=== PATIENT | female | born 1975 | race Caucasian/White ===

== ENCOUNTER 2016-03-15 10:19 | Emergency (ER) | payer OTHER ==
--- NOTE | 2016-03-15 11:42 | ED ---
General Adult HPI - General Chief complaint: Back Pain/Injury Stated complaint: back pain Time Seen by Provider: 03/15/16 11:25 Source: patient, RN notes reviewed Mode of arrival: ambulatory Limitations: no limitations - History of Present Illness Initial comments: Patient is a 40-year-old female who presents emergency room today with a chief complaint of a acute exacerbation chronic low back pain. Does admit to pain on the left side of the back is worse with certain movements. Denies any bowel or bladder incontinence or retention. Denies any saddle anesthesia. Denies any lumbar radiculopathy. Patient denies any recent fever, chills, shortness of breath, chest pain, abdominal pain, nausea or vomiting, numbness or tingling, dysuria or hematuria, constipation or diarrhea, headaches or visual changes, or any other complaints. - Related Data Home Medications Medication Instructions Recorded Confirmed Levothyroxine Sodium [Synthroid] 100 mcg PO DAILY 01/08/16 03/15/16 Ferrous Sulfate [Feosol] 325 mg PO HS 03/15/16 03/15/16 Fluticasone Nasal [place] [Flonase 2 spr EA NOSTRIL HS 03/15/16 03/15/16 Nasal [place]] Lisinopril [Prinivil] 10 mg PO HS 03/15/16 03/15/16 Previous Rx's Medication Instructions Recorded Cyclobenzaprine [Flexeril] 10 mg PO TID #20 tab 03/15/16 Ibuprofen [Motrin] 600 mg PO Q6HR PRN #40 day 03/15/16 Allergies Allergy/AdvReac Type Severity Reaction Status Date / Time No Known Allergies Allergy Verified 03/15/16 10:34 Review of Systems ROS Statement: Those systems with pertinent positive or pertinent negative responses have been documented in the HPI. ROS Other: All systems not noted in ROS Statement are negative. Past Medical History Past Medical History: Fibromyalgia, Hypertension Additional Past Medical History / Comment(s): degenerative disc disease, sciatica, herniated disc,ovarian cysts clotting disorder per pt , anemia History of Any Multi-Drug Resistant Organisms: None Reported Past Surgical History: Adenoidectomy, Ear Surgery, Tonsillectomy Additional Past Surgical History / Comment(s): ovarian cyst removed; hysteroscopy; laparoscopy, DandC Past Psychological History: Depression, PTSD Smoking Status: Current every day smoker Past Alcohol Use History: None Reported Past Drug Use History: None Reported General Exam - General Exam Comments Initial Comments: General: The patient is awake and alert, in no distress, and does not appear acutely ill. Eye: Pupils are equal, round and reactive to light, extra-ocular movements are intact. No nystagmus. There is normal conjunctiva bilaterally. No signs of icterus. Ears, nose, mouth and throat: There are moist mucous membranes and no oral lesions. Neck: The neck is supple, there is no tenderness or JVD. Cardiovascular: There is a regular rate and rhythm. No murmur, rub or gallop is appreciated. Respiratory: Lungs are clear to auscultation, respirations are non-labored, breath sounds are equal. No wheezes, stridor, rales, or rhonchi. Musculoskeletal: Normal ROM. No tenderness over the spinous processes. No step-off deformities appreciated. Paravertebral tenderness left lower lumbar. Strength 5/5. Sensation intact. Pulses equal bilaterally 2+. Neurological: A&O x 3. CN II-XII intact, There are no obvious motor or sensory deficits. Coordination appears grossly intact. Speech is normal. Skin: Skin is warm and dry and no rashes or lesions are noted. Psychiatric: Cooperative, appropriate mood & affect, normal judgment. Limitations: no limitations Course Vital Signs 03/15/16 10:30 Temperature 97.7 F Pulse Rate 71 Respiratory 16 Rate Blood Pressure 158/7 O2 Sat by Pulse 97 Oximetry Medical Decision Making - Medical Decision Making Patient will be treated with anti-inflammatories and muscle relaxant. Advised about the family doctor. Advised to follow-up for possible MRI. Advised return if any symptoms increase or worsen. Disposition Clinical Impression: Acute exacerbation of chronic low back pain Disposition: HOME SELF-CARE Condition: Good Instructions: Acute Low Back Pain (ED) Additional Instructions: Please use medication as discussed. Please follow-up with family doctor in the next 2 days of symptoms have not improved. Please return to emergency room if the symptoms increase or worsen or for any other concerns. Prescriptions: Cyclobenzaprine [Flexeril] 10 mg PO TID #20 tab Ibuprofen [Motrin] 600 mg PO Q6HR PRN #40 day PRN Reason: Pain Time of Disposition: 11:41
[2016-03-15 12:34] VITALS: BP 167/75; PULSE 70; RESP 18; TEMP 97.8
== END 2016-03-15 12:32 | disposition home or self-care (01) ==
LOC: EC 10:19
DX: M54.5 Low back pain (principal); G89.29 Other chronic pain; I10 Essential (primary) hypertension; D64.9 Anemia, unspecified; F17.200 Nicotine dependence, unspecified, uncomplicated; Z79.51 Long term (current) use of inhaled steroids; Z79.899 Other long term (current) drug therapy
CPT/HCPCS: 99282

== ENCOUNTER → 2016-04-02 | Outpatient (CLI) | payer OTHER ==
--- NOTE | 2016-04-02 12:03 | CT ---
EXAMINATION TYPE: CT sinus wo con DATE OF EXAM: 04/02/2016 11:58 AM COMPARISON: NONE HISTORY: difficulty breathing through right side of nose, diagnosed with deviated septum CT DLP: 641.[address] of the paranasal sinuses was performed in the axial and coronal planes. Bone and soft tissue settings are submitted. The paranasal sinuses demonstrate normal aeration and development. Minimal mucosal thickening left maxillary sinus. No air-fluid fluid level seen. Remaining sinuses wel l aerated. The osteal meatal units are patent bilaterally. The nasal septum is midline. No bony destructive changes are seen within the field of view. IMPRESSION: Mild chronic sinusitis left maxillary sinus.
== END | disposition home or self-care (01) ==
LOC: RADCTMAIN 11:42
PROVIDERS: ATTEND Otolaryngology
DX: J32.0 Chronic maxillary sinusitis (principal)
CPT/HCPCS: 70486

== ENCOUNTER → 2016-04-20 | Outpatient (CLI) | payer OTHER ==
--- NOTE | 2016-04-20 11:08 | MR ---
EXAMINATION TYPE: MR lumbar spine wo con DATE OF EXAM: 04/20/2016 10:52 AM COMPARISON: 09/09/2013 HISTORY: ddd lsp, back pain TECHNIQUE: T1 and T2 axial and sagittal images of the lumbar spine are submitted. FINDINGS: There is no abnormal signal seen within the visualized spinal cord or paraspinal soft tissu es. Simple appearing left renal cyst noted. At L1-2 there is mild broad-based central disc bulging. No spinal canal stenosis or neural foraminal stenosis is present At L2-3 there is mild broad-based central disc bulging. No spinal canal stenosis or neural foraminal stenosis is present At L3-4 there is mild central broad-based disc bulging. No spinal canal stenosis or neural foraminal stenosis is present At L4-5 there is mild disc desiccation. There is mild facet arthropathy. Neural foramina remain paten t. Very mild central broad-based disc bulging. No Canal stenosis. At L5-S1 there is facet arthropathy greater on the right with an anterolisthesis. There hypertrophic change of the facets greater on the right and there may be compression of the right S1 nerve root. IMPRESSION: 1. Stable anterolisthesis L5 on S1 with facet arthropathy greater on the right. Hypertrophic changes appear to be compressing the right S1 nerve root. 2. Marked facet arthropathy and mild central disc bulging L4-L5 with no canal stenosis. Neural forami na remain patent.
== END | disposition home or self-care (01) ==
LOC: RADMRIMAIN 10:05
PROVIDERS: ATTEND Physical Medicine & Rehabilitation
DX: M51.37 Other intervertebral disc degeneration, lumbosacral region (principal); M43.17 Spondylolisthesis, lumbosacral region
CPT/HCPCS: 72148

== ENCOUNTER → 2017-08-22 | Outpatient (CLI) | payer OTHER ==
--- NOTE | 2017-08-22 15:46 | US ---
EXAMINATION TYPE: US venous doppler duplex LE LT DATE OF EXAM: 08/22/2017 3:24 PM COMPARISON: NONE CLINICAL HISTORY: M79.662 Pain left leg, R22.42 Swelling left leg. SIDE PERFORMED: TECHNIQUE: The lower extremity deep venous system is examined utilizing real time linear array sonog roger with graded compression, doppler sonography and color-flow sonography. VESSELS IMAGED: External Iliac Vein (EIV) Common Femoral Vein Deep Femoral Vein Greater Saphenous Vein * Femoral Vein Popliteal Vein Small Saphenous Vein * Proximal Calf Veins (* superficial vessels) Left Leg: Negative for DVT Grayscale, color doppler, spectral doppler imaging performed of the deep veins of the left lower extr emity. There is normal flow, compressibility, vascular waveforms. IMPRESSION: No ultrasound evidence for acute DVT in the left lower extremity.
== END | disposition home or self-care (01) ==
LOC: RADUSWWP 14:54
PROVIDERS: ATTEND Internal Medicine
DX: R22.42 Localized swelling, mass and lump, left lower limb (principal)

== ENCOUNTER → 2019-02-18 | Outpatient (CLI) | payer OTHER ==
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
== END | disposition home or self-care (01) ==
LOC: PNWHC3 11:37
PROVIDERS: ATTEND Specialist
DX: M50.10 Cervical disc disorder with radiculopathy, unspecified cervical region (principal); M51.36 Other intervertebral disc degeneration, lumbar region; M47.816 Spondylosis without myelopathy or radiculopathy, lumbar region; M46.96 Unspecified inflammatory spondylopathy, lumbar region; M46.1 Sacroiliitis, not elsewhere classified; E78.5 Hyperlipidemia, unspecified; I10 Essential (primary) hypertension; M79.7 Fibromyalgia; J42 Unspecified chronic bronchitis; F17.200 Nicotine dependence, unspecified, uncomplicated; Z79.1 Long term (current) use of non-steroidal anti-inflammatories (NSAID); Z79.899 Other long term (current) drug therapy
CPT/HCPCS: 99211

== ENCOUNTER 2019-03-19 09:03 | Day surgery (SDC) | payer OTHER ==
[2019-03-18 09:42] VITALS: BMI 39.1
[~2019-03-19 09:03] MED LIST: BUPIVACAINE (PF) 0.5% 30 ML VIAL ONE; IOPAMIDOL M200 10 ML VIAL ONE; LACTATED RINGERS 1,000 ML IV SCH; MIDAZOLAM 2 MG/2 ML VIAL ONE; TRIAMCINOLONE ACETONIDE 40 MG/ML 1 ML VIAL ONE
[2019-03-19 09:22] VITALS: TEMP 97.9
--- NOTE | 2019-03-19 10:37 | P.PCN ---
Date of Procedure: 03/19/19 Procedure(s) Performed: Preoperative diagnoses: bilateral sacroilitis Postoperative diagnoses: bilateral sacroilitis. Procedure: bilateral sacroiliac joint steroid injection under fluoroscopic guidance. Surgeon: Kalani Fonseca MD Anesthesia: [2 mL of 1% lidocaine and moderate sedation per hospital guidelines], sedation time 16 minutes Fluoroscopy was used for the procedure and fluoroscopic images were saved to the radiology portion of the patient's chart. EBL: None Procedure indication: The patient had a history of severe chronic low back pain, diagnosed with sacroiliitis unresponsive to conservative treatment. Procedure description: The patient was seen and identified in the preoperative holding area, risks and benefits and alternative of the procedure and possible complications discussed with the patient, and patient agreed with the preceding, patient signed the consent, an IV was started, and vital signs were monitored and were stable throughout the procedure, patient was placed in the prone position on table and the lumbosacral area was prepped and draped with a sterile fashion, vital signs were closely monitored during the procedure, the fluoroscopy camera was placed in the contralateral oblique view on the bilateral sacroiliac joint and the lower part of the joint was identified . Then the skin and subcutaneous tissue was anesthetized using 2 mL of 1% lidocaine then a 22- gauge Quincke-type spinal needle advanced slowly under fluoroscopy and placed in the posterior and inferior border of the right sacroiliac joint, placement confirmed with AP and lateral view, and after appropriate needle placement confirmed and after negative aspiration for heme, 1 mL of Isovue 200 was injected revealing intra-articular spread. Then a solution consisting of 2 ml of ropivacaine 0.5% and 40 mg of Kenalog injected after negative aspiration, no paresthesia during the injection, no resistance to injection, and the needle was removed. The procedure was then repeated on the left side. Total of 80 mg of Kenalog was used for the procedure. Patient tolerated the procedure well without any complication. The patient was returned to supine position after the back was cleaned and a Band-Aid applied, the patient was transported to recovery room in stable condition and monitored for 30 minutes before being discharged home. The patient will follow up with the pain clinic in a few weeks
[2019-03-19 10:50] VITALS: RESP 18
[2019-03-19 11:05] VITALS: BP 130/87; PULSE 59
[2019-03-19] MEDS ORDERED: IV FLUID CONTINUATION 1,000 ML IV ONE (11:09)
--- NOTE | 2019-03-19 12:09 | FL ---
Fluoroscopy HISTORY: Pain 11 seconds fluoroscopy time supplied to the referring clinician. 4 intraoperative C-arm images docum ent the procedure. See dictated report from anesthesia.
== END 2019-03-19 11:21 | disposition home or self-care (01) ==
LOC: ORPAIN 09:03
PROVIDERS: ATTEND Anesthesiology
DX: G89.29 Other chronic pain (principal); M46.1 Sacroiliitis, not elsewhere classified
CPT/HCPCS: 81025; 27096; J2250; J3301; Q9966; J2795; 99152

== ENCOUNTER → 2019-03-30 | Outpatient (CLI) | payer OTHER ==
[2019-03-30 11:50] VITALS: BP 160/97; PULSE 70; RESP 16
--- NOTE | 2019-03-30 12:01 | P.PAINPG ---
Subjective Progress Note Date: 03/30/19 Principal diagnosis: Cervical spondylosis, lumbar spondylosis, sacroiliitis Lali is a 43-year-old female was seen in consultation about one month ago and was scheduled to have bilateral sacroiliac joint injections. Sacroiliac joint injections were done under fluoroscopy with Dr. Fonseca. Patient has a chronic complaint of neck pain, low back pain, bilateral buttock pain. She reports that her pain has improved after about a week, she reports that during the first few days after the injection she was more sore than she was previously but the pain has subsided. She still reports that during the first day injection helped significantly and she had not felt that good in a long time. At this point she continues to benefit from the injection that still has a residual area of pain over the center of her tailbone. She also reports that over the last week she had one episode of radiculopathy down the right leg while she was walking at the store which resolved immediately. She felt a sharp shooting pain which went all the way down to her foot. She denies any bowel or bladder incontinence. We discussed the findings of the MRI and the possibility of radiculopathy secondary to facet arthropathy on the right side at L5-S1 level. She's had an MRI of the cervical spine, lumbar spine as well as the shoulder (minimal supraspinatus tendinitis). There is minimal degenerative changes in the cervical spine along with minimal degenerative changes in the lumbar spine. Lumbar spine MRI shows small disc bulge at L5-S1 as well as a right L5-S1 facet hypertrophic which may be impinging upon the S1 nerve root. Objective - Vital Signs Vital signs: General: Awake and alert oriented 3 no distress Respiratory exam: No audible wheezing no accessory muscle usage Cardiovascular exam: regular rate, palpable bilateral pulses, no lower extremity edema Abdominal exam: No distention nontender to palpation Cervical spine: Normal alignment, Spurling's negative, facet loading negative, Hooker Laster strength is 5/5, owusu negative Lumbar spine: Loss of lumbar lordosis, normal alignment, tender to palpation over bilateral paraspinal muscles, facet loading is positive bilaterally. Straight leg raise is negative. Limited range of motion due to pain with flexion, extension and side bending. Sacroiliac joints: Nontender to palpation, SIMONE is negative, Gaenselon negative Neuro exam: Normal sensation in bilateral upper extremities, deep tendon reflexes are 2+ bilateral upper extremities. Normal sensation in bilateral lower extremities. Deep tendon reflexes are 2+ in lower extremities Psych exam: Cooperative, appropriate mood - Exam General: Awake and alert oriented 3 no distress, obese Respiratory exam: No audible wheezing no accessory muscle usage Cardiovascular exam: regular rate, palpable bilateral pulses, no lower extremity edema Abdominal exam: No distention nontender to palpation Cervical spine: Normal alignment, Spurling's negative, facet loading negative, Hooker Laster strength is 5/5, owusu negative Lumbar spine: Alignment is in the midline, skin is normal and there is no erythema or fluctuance. There is no masses palpated. There is complete atrophy of the paraspinal muscles and gluteal muscles. The waistline is obese. There is no tenderness to palpation over the paraspinal muscles, there is tenderness to palpation over the midline in the sacral area not over the SI joints. Patient has preserved flexion and extension as well as lateral sidebending of the lumbar spine. Sacroiliac joints: Nontender to palpation. Simone's test is positive on the right more so than on the left. Gains on's positive on the right Neuro exam: Normal sensation in bilateral upper extremities, deep tendon reflexes are 2+ bilateral upper extremities. Normal sensation in bilateral lower extremities. Deep tendon reflexes are 2+ in lower extremities Psych exam: Cooperative, appropriate mood, flat affect Assessment and Plan Assessment: #1 sacroiliitis #2 lumbar facet arthropathy #3 lumbar spondylosis without myelopathy Plan: After review of the medical records, imaging and examination the patient patient reports she is doing better after the SI joint injection. She still has a residual area of pain over the center of her tailbone. At this point she feels better than she felt before the injection and like to continue down this course. We will not repeat injection at this time until the patient's pain returns. We discussed potentially doing radiofrequency ablation in the future. I suggestion would be if she needs to have another injection done to perform a sacral lateral branch in the event she would like to move forward with a radiofrequency ablation. PQRS Measure Charge Sheet Measure #130: Documentation of Current Meds in Medical Chart: Patient's medications documented in chart Measure #412: Opioid Treatment Agreement: No documentation of signed opioid treatment agreement Measure #317: Preventitive Care & Scrn High Bld Press & F/U: Normal blood pressure, f/u not required Measure #128: Body Mass Index (BMI) Screening & Follow-up: BMI documented ABOVE normal parameters - f/u documented Measure #131: Pain Assessment & Follow-up: Pain positive & plan documented Measure #431: Unhealthy Alcohol Use Preventative Care & Scrn: Patient not identified as an unhealthy alcohol user PQRS Narrative: Smoking Status Current every day smoker Pain Intensity [Back] 9 Scale Used Numeric (1 - 10) Hx Alcohol Use (MH) Yes: rare Home Medications: Ambulatory Orders DULoxetine HCL [Cymbalta] 60 mg PO DAILY 02/16/19 Fenofibrate Nanocrystallized [Fenofibrate] 145 mg PO DAILY 02/16/19 Ibuprofen [Motrin] 800 mg PO Q6H PRN 02/16/19 amLODIPine [Norvasc] 5 mg PO HS 02/16/19 tiZANidine HCL [Zanaflex] 4 mg PO TID PRN 02/16/19 Controlled Substance Measures - Controlled Substance Measures Is patient prescribed a controlled substance at discharge?: No
== END | disposition home or self-care (01) ==
LOC: PNWHC3 11:30
PROVIDERS: ATTEND Hospitalist
DX: M46.1 Sacroiliitis, not elsewhere classified (principal); M46.96 Unspecified inflammatory spondylopathy, lumbar region; M47.816 Spondylosis without myelopathy or radiculopathy, lumbar region; F17.200 Nicotine dependence, unspecified, uncomplicated; Z79.899 Other long term (current) drug therapy
CPT/HCPCS: 99211

== ENCOUNTER → 2019-09-07 | Outpatient (CLI) | payer OTHER ==
--- NOTE | 2019-09-11 18:18 | EM ---
EVENT MONITOR [id number] HOLTER MONITOR: Patient in her diary had episodes of palpitations and feelings of nausea. This is a 48- hour Holter. There are two 24-hour recordings reviewed. Predominant rhythm appears to be sinus with a heart rate ranging from 50 to 114 beats per minute, with average heart rate of 73 beats per minute. When patient complained of palpitations, she was in a normal sinus rhythm at 82 beats per minute. There was no evidence of any ventricular or supraventricular ectopy of significance. Rare PACs and rare PVCs were noted. No runs of SVT, VT bradyarrhythmia was noted. FINAL IMPRESSION: This is an unremarkable 48-hour DCG with a predominant sinus rhythm, average rate of 73 beats per minute. Rare PACs and PVCs were noted. No evidence of any bradyarrhythmia. When patient complained of palpitations, she was in a normal sinus rhythm at 82 beats per minute. Final impression: Unremarkable 24-hour DCG with sinus mechanism. MMODL / IJN: [id number] /
== END | disposition home or self-care (01) ==
LOC: RADECHMAIN 12:03
PROVIDERS: ATTEND Internal Medicine
DX: R00.2 Palpitations (principal)
CPT/HCPCS: 93225; 93226

== ENCOUNTER → 2020-05-16 | Outpatient (CLI) | payer OTHER | END | disposition home or self-care (01) | LOC: LABWHC1 16:26 | PROVIDERS: ATTEND Internal Medicine | DX: U07.1 COVID-19 (principal) | CPT/HCPCS: U0003; C9803 ==

== ENCOUNTER → 2020-10-10 | Outpatient (CLI) | payer OTHER ==
--- NOTE | 2020-10-11 07:37 | CT ---
EXAMINATION TYPE: CT chest abdomen wo con DATE OF EXAM: 10/10/2020 COMPARISON: None HISTORY: Chest and generalized abdominal pain xfew months. CT DLP: 1063.5mGycm Unenhanced CT of the Chest, Abdomen Unenhanced CT of the chest ,abdomen is performed. The lack of intravenous contrast limits evaluation of the solid and hollow viscera. Oral contrast: Yes CT Chest: LUNGS: The lungs are clear and free of infiltrate or atelectasis. No pulmonary nodule or mass is det ected. No pleural effusion or CT evidence of interstitial lung disease. MEDIASTINUM: Thoracic aorta is of normal caliber. The heart is not enlarged. No evidence for media stinal mass or adenopathy. HILAR STRUCTURES: No evidence for mass. No hilar adenopathy is appreciated. OTHER: No significant abnormality. CONTRAST CT ABDOMEN LIVER/GB: No calcified gallstones. No space occupying hepatic lesion. Biliary tree is of normal ca liber. PANCREAS: No inflammation. No distinct mass. SPLEEN: No splenic enlargement. No lesion seen. ADRENALS: No nodule. No thickening. KIDNEYS/BLADDER: No hydronephrosis. No nephrolithiasis. No disctinct renal mass. BOWEL: Normal appendix. Normal bowel caliber. No inflammation. LYMPH NODES: No greater than 1cm abdominal or pelvic lymph nodes are appreciated. AORTA: No significant abnormality. OSSEOUS STRUCTURES: No significant abnormality is seen. OTHER: No significant additional abnormality is seen. IMPRESSION: 1. No significant abnormality appreciated.
== END | disposition home or self-care (01) ==
LOC: RADCTMAIN 16:20
PROVIDERS: ATTEND Internal Medicine
DX: R07.9 Chest pain, unspecified (principal); R10.84 Generalized abdominal pain
CPT/HCPCS: 71250; 74150

== ENCOUNTER 2022-04-25 11:50 | Day surgery (SDC) | payer OTHER ==
[2022-04-20 15:46] VITALS: BMI 44.9
[~2022-04-25 11:50] MED LIST changes: -BUPIVACAINE (PF) 0.5% 30 ML VIAL ONE; -IOPAMIDOL M200 10 ML VIAL ONE; +LIDOCAINE 1% (10MG/ML) FOR IV START INTRADERMA PRN; -MIDAZOLAM 2 MG/2 ML VIAL ONE; +ONDANSETRON 4 MG/2 ML VIAL IVP PRN; -TRIAMCINOLONE ACETONIDE 40 MG/ML 1 ML VIAL ONE
[2022-04-25] MEDS ORDERED: LACTATED RINGERS 1,000 ML IV ONE (12:13)
[2022-04-25 12:28] VITALS: RESP 16; TEMP 98
[2022-04-25] MEDS ORDERED: PROPOFOL 10 MG/ML 20 ML VIAL IV ONE (13:14)
[2022-04-25] MEDS ORDERED: LIDOCAINE 2% INJ 20 MG/ML (2 ML VIAL) ONE (13:14)
--- NOTE | 2022-04-25 13:32 | P.PCN ---
Date of Procedure: 04/25/22 Procedure(s) Performed: BRIEF HISTORY: Patient is a 46-year-old pleasant white female scheduled for an elective colonoscopy as a part of screening for colorectal neoplasia PROCEDURE PERFORMED: Colonoscopy. PREOPERATIVE DIAGNOSIS: Screening for colon cancer. IV sedation per Anesthesia. PROCEDURE: After informed consent was obtained, the patient, was brought into the endoscopy unit. IV sedation was administered by Anesthesia under continuous monitoring. Digital rectal examination was normal. Initially the Olympus CF-160 flexible video colonoscope was then inserted in the rectum, gradually advanced into the cecum without any difficulty. Careful examination was performed as the scope was gradually being withdrawn. Ileocecal valve and the appendiceal orifice were visualized and appeared normal. Prep was excellent. Mucosa of the cecum, ascending colon, transverse colon, descending colon, sigmoid colon, and rectum appeared normal. Retroflexion was performed in the rectum and no lesions were seen. The patient tolerated the procedure well. IMPRESSION: Normal-appearing colon from rectum to cecum with no evidence of colorectal neoplasia. RECOMMENDATIONS: Findings of this examination were discussed with the patient as well as a family. She was advised to have a repeat screening colonoscopy in 10 years .
[2022-04-25 13:53] VITALS: BP 134/84; PULSE 73
== END 2022-04-25 14:16 | disposition home or self-care (01) ==
LOC: ORWHC2ENDO 11:50
PROVIDERS: ATTEND Internal Medicine Gastroenterology
DX: Z12.11 Encounter for screening for malignant neoplasm of colon (principal); I10 Essential (primary) hypertension; E78.5 Hyperlipidemia, unspecified; M79.7 Fibromyalgia; K21.9 Gastro-esophageal reflux disease without esophagitis; Z87.891 Personal history of nicotine dependence; Z79.899 Other long term (current) drug therapy
CPT/HCPCS: 81025; 45378; J2704; J2001

== ENCOUNTER → 2022-11-22 | Outpatient (CLI) | payer OTHER ==
--- NOTE | 2022-11-22 20:35 | US ---
EXAMINATION TYPE: US thyroid st tissue head/neck DATE OF EXAM: 11/22/2022 COMPARISON: NONE CLINICAL INDICATION: Female, 47 years old with history of R94.6 ABN THYROID FUNCTION STUDIES; Hypothy roidism. He's GLAND SIZE: Right Lobe: 5.7 x 2.0 x 2.3 cm Overall Parenchyma: heterogenous Left Lobe: 4.6 x 1.3 x 1.8 cm Overall Parenchyma: heterogenous Isthmus Thickness: 0.7 cm Diffuse hyperemia. NODULES RIGHT: # of nodules measured on right: 0 LEFT: # of nodules measured on left: 0 ISTHMUS: # of nodules measured in the isthmus: 0 Bilateral neck scanned, no evidence of lymphadenopathy. IMPRESSION: Thyromegaly with diffusely heterogeneous and hyperemic thyroid parenchyma suggesting diffuse thyroidi tis. Findings may be seen with hydronephrosis thyroiditis. No discrete nodules.
== END | disposition home or self-care (01) ==
LOC: RADUSWWP 15:21
PROVIDERS: ATTEND Family Medicine
DX: E03.9 Hypothyroidism, unspecified (principal); R94.6 Abnormal results of thyroid function studies
CPT/HCPCS: 76536

== ENCOUNTER → 2022-12-19 | Outpatient (CLI) | payer OTHER | END | disposition home or self-care (01) | LOC: RADUSWWP 14:37 | PROVIDERS: ATTEND Family Medicine | DX: Z53.9 Procedure and treatment not carried out, unspecified reason (principal) ==

== ENCOUNTER → 2023-09-06 | Outpatient (CLI) | payer OTHER ==
--- NOTE | 2023-09-06 09:56 | CT ---
EXAMINATION TYPE: CT chest wo con CT DLP: 563.5 mGycm, Automated exposure control for dose reduction was used. DATE OF EXAM: 09/06/2023 9:24 AM COMPARISON: CT chest abdomen 10/10/2020. CLINICAL INDICATION:Female, 47 years old with history of R91.8 ABNORMAL FINDING LUNG FIELD; PHH, f/u lung nodule TECHNIQUE: Multiple axial images were obtained through the chest without IV contrast. Lack of IV or o ral contrast limits evaluation of solid and hollow organ viscera. . Coronal and sagittal reformats re viewed. FINDINGS: LUNGS/ PLEURA: Pleural effusion, pneumothorax, focal consolidation. Stable pleural-based right midlun g 3 mm pulmonary nodule (series 205, image 29). Stable 4 mm pulmonary nodule within the right middle lobe (series 205, image 31). No new or enlarging pulmonary nodules. AIRWAY: Patent and unremarkable.. HEART: Size within normal limits. No pericardial effusion. MEDIASTINUM: No gross evidence of adenopathy. VASCULATURE: No aortic aneurysm. MUSCULOSKELETAL: No acute osseous abnormalities SOFT TISSUES/LYMPH NODES: Unremarkable. LOWER NECK: No significant findings. UPPER ABDOMEN: Liver is diffusely hypoattenuating with sparing around the gallbladder consistent with hepatic steatosis with focal fatty sparing. IMPRESSION: 1. There are 2 stable pulmonary nodules dating back to 2020 exam and considered benign. No new or enl arging pulmonary nodules. 2. Hepatic steatosis with focal fatty sparing.
== END | disposition home or self-care (01) ==
LOC: RADCTMAIN 08:47
PROVIDERS: ATTEND Family Medicine
DX: R91.8 Other nonspecific abnormal finding of lung field (principal); K76.0 Fatty (change of) liver, not elsewhere classified
CPT/HCPCS: 71250

== ENCOUNTER → 2023-09-06 | Outpatient (CLI) | payer OTHER ==
--- NOTE | 2023-10-08 10:12 | MM ---
Reason for Exam: Screening (asymptomatic). Last mammogram was performed 10 year(s) and 8 month(s) ago. Patient History: Menarche at age 12. First Full-Term at age 22. Premenopausal. Currently using Progesterone, starting at age 36. Maternal grandmother had breast cancer. Last menstrual period: 08/23/2023 Risk Values: Genesis 5 year model risk: 0.8%. NCI Lifetime model risk: 8.4%. Prior Study Comparison: 12/24/2012 Bilateral Diagnostic Mammogram, [facility]. Tissue Density: The breasts are almost entirely fatty. Findings: Analyzed By CAD. There is no suspicious group of microcalcifications or new suspicious mass in either breast. Overall Assessment: Negative, BI-RAD 1 Management: Screening Mammogram of both breasts in 1 year. Examination was dictated during downtime. Patient should continue monthly self-breast exams. A clinical breast exam by your physician is recommended on an annual basis. This exam should not preclude additional follow-up of suspicious palpable abnormalities. Note on Genesis scores and lifetime risk: 1. A Genesis score greater than 3% is considered moderate risk. If this is the case, consider specialist referral to assess eligibility for a risk reducing agent. 2. If overall lifetime risk for the development of breast cancer is 20% or higher, the patient may qualify for future screening with alternating mammogram and breast MRI. Electronically signed and approved by: Long Hadley M.D. Radiologis
== END | disposition home or self-care (01) ==
LOC: RADMAMWWP 08:13
PROVIDERS: ATTEND Family Medicine
DX: Z12.31 Encounter for screening mammogram for malignant neoplasm of breast (principal); Z80.3 Family history of malignant neoplasm of breast
CPT/HCPCS: 77063; 77067

== ENCOUNTER → 2024-08-19 | Outpatient (CLI) | payer OTHER ==
[2024-08-19 14:53] VITALS: BP 155/82; PULSE 70; RESP 16; TEMP 98; BMI 45.2
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
[2024-08-19 15:58] LABS: INR 1.0 (<1.2); Partial Thromboplastin Time 25.2 sec (22.0-30.0); Prothrombin Time 11.1 sec (10.0-12.5)
[2024-08-19 19:38] LABS: HCT 40.7 % (37.2-46.3); HGB 13.7 g/dL (12.0-15.0); MCH 29.7 pg (27.0-32.0); MCHC 33.7 g/dL (32.0-37.0); MCV 88.3 FL (80.0-97.0); NRBC Per 100 WBC 0 X 10*3/uL (0.00-0.01); Platelet Count 198 X 10*3/uL (140-440); RBC 4.61 X 10*6/uL (4.10-5.20); RDW 13.0 % (11.5-14.5); WBC 6.94 X 10*3/uL (4.50-10.00)
[2024-08-19 19:47] LABS: Urine Alcohol Negative (Negative); Urine Barbiturate Negative (Negative)
[2024-08-19 20:02] LABS: ALT 35 U/L (8-44); AST 45 U/L (13-35); Albumin 4.2 g/dL (3.8-4.9); Albumin/Globulin Ratio 1.68 Ratio (1.60-3.17); Alkaline Phosphatase 77 U/L (41-126); Anion Gap 11.30 mmol/L (4.00-12.00); BUN/Creat Ratio 15.50 Ratio (12.00-20.00); Blood Urea Nitrogen 12.4 mg/dL (9.0-27.0); Calcium 9.1 mg/dL (8.7-10.3); Carbon Dioxide 23.7 mmol/L (21.6-31.8); Chloride 103 mmol/L (96-109); Cholesterol 225.00 mg/dL (0.00-200.00); Ferritin 55.0 ng/mL (10.0-291.0); Globulin 2.5 g/dL (1.6-3.3); Glucose 88 mg/dL (70-110); HDL Cholesterol 40.40 mg/dL (40.00-60.00); Iron 73 UG/DL (50-170); LDL Cholesterol,Calculated 114.8 mg/dL (0.0-131.0); Magnesium 2.0 mg/dL (1.5-2.4); Potassium 3.9 mmol/L (3.5-5.5); Sodium 138 mmol/L (135-145); Total Iron Binding Capacity 444 UG/DL (228-460); Total Protein 6.7 g/dL (6.2-8.2); Triglycerides 349.00 mg/dL (0.00-149.00); VLDL Calculation 69.80 mg/dL (5.00-40.00); Vitamin B12 782.0 pg/mL (200.0-944.0)
[2024-08-19 22:06] LABS: Prealbumin 23.4 mg/dL (18.0-42.0)
[2024-08-20 10:26] LABS: Zinc, Serum 53 ug/dL (60-130)
[2024-08-21 06:07] LABS: Anabasine Urine <2.0 ng/mL (<2.0)
[2024-08-24 07:51] LABS: Vit B1(Thiamine) 74 ug/L (38-122)
== END ==
LOC: BARWHC3 14:14
PROVIDERS: ATTEND Surgery Plastic and Reconstructive Surgery
DX: E66.01 Morbid (severe) obesity due to excess calories (principal); D50.8 Other iron deficiency anemias; K91.2 Postsurgical malabsorption, not elsewhere classified; E44.0 Moderate protein-calorie malnutrition; E45 Retarded development following protein-calorie malnutrition; E55.9 Vitamin D deficiency, unspecified; K74.1 Hepatic sclerosis; N19 Unspecified kidney failure; T56.894A Toxic effect of other metals, undetermined, initial encounter; K50.90 Crohn's disease, unspecified, without complications; F17.200 Nicotine dependence, unspecified, uncomplicated; Z68.42 Body mass index [BMI] 45.0-49.9, adult
CPT/HCPCS: 80053; 80061; 80306; 80323; 82306; 82525; 82607; 82728; 82746; 83036; 83540; 83550; 83735; 83970; 84100; 84134; 84255; 84425; 84443; 84590; 84630; 85027; 85610; 85730; 93005; 99212